=== PATIENT | male | born 2005 | race Caucasian/White ===

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

== ENCOUNTER 2024-04-29 06:50 | Observation (INO) | payer BC ==
[2024-04-28 11:47] VITALS: BMI 36.0
[2024-04-29] MEDS ORDERED: fentaNYL PF 100 MCG/2 ML SYRINGE ONE ×2 (07:49→09:45)
[2024-04-29] MEDS ORDERED: Ondansetron PF 4 MG/2 ML Vial ONE ×2 (07:50→11:24)
[2024-04-29] MEDS ORDERED: PROPOFOL 20 ML ONE (07:50)
[2024-04-29] MEDS ORDERED: Dexamethasone 4 mg/ml Vial ONE (07:50)
[2024-04-29] MEDS ORDERED: CEFAZOLIN 2 GM VIAL ONE ×2 (07:51→13:15)
[2024-04-29] MEDS ORDERED: fentaNYL 50 mcg/mL 1 mL Vial ONE (08:25)
[2024-04-29] MEDS ORDERED: Midazolam HCl 2 mg/2 ml Vial ONE (08:25)
[2024-04-29] MEDS ORDERED: Bupivacaine PF 0.5% 30 ML VIAL ONE (08:25)
[2024-04-29] MEDS ORDERED: Bupivacaine HCl 0.5%/Epinephrine 1:200,000/PF 30 ml Vial ONE (08:33)
[2024-04-29] MEDS ORDERED: Ropivacaine 0.2% 550 ML 550 ML NERVE BLCK SCH (09:30)
[2024-04-29] MEDS ORDERED: traMADol HCl 50 MG TAB PO PRN ×2 (09:30)
[2024-04-29] MEDS ORDERED: Promethazine HCl 25 MG/ML VIAL IM PRN (09:30)
[2024-04-29] MEDS ORDERED: fentaNYL 50 mcg/mL 1 mL Vial SLOW IVP PRN (09:30)
[2024-04-29] MEDS ORDERED: Ondansetron PF 4 MG/2 ML Vial IVP PRN (09:30)
[2024-04-29] MEDS ORDERED: Zolpidem Tartrate 5 MG TAB PO PRN (09:30)
[2024-04-29] MEDS ORDERED: HYDROcodone/Acetaminophen 10/325 mg Tablet PO PRN ×2 (09:30)
[2024-04-29] MEDS ORDERED: Promethazine HCl 25 MG/ML VIAL ONE (12:24)
[2024-04-29] MEDS ORDERED: diphenhydrAMINE 50 MG CAP PO PRN (13:05)
[2024-04-29] MEDS ORDERED: Acetaminophen 500 MG TAB PO PRN (13:05)
[2024-04-29] MEDS ORDERED: Bisacodyl 10 MG SUPP PR PRN (13:05)
[2024-04-29] MEDS ORDERED: HYDROcodone/Acetaminophen 7.5/325 mg Tablet PO PRN ×2 (13:05)
[2024-04-29] MEDS ORDERED: Methocarbamol 500 MG TAB PO PRN (13:05)
[2024-04-29] MEDS ORDERED: Milk Of Magnesia 30 ML UDCUP PO PRN (13:05)
[2024-04-29] MEDS ORDERED: Ketorolac Tromethamine 30 MG (1 mL) VIAL ONE (13:15)
[2024-04-29] MEDS ORDERED: Sodium Chloride 0.9% 100 ML ONE (13:15)
[2024-04-29] MEDS: Ketorolac Tromethamine 30 MG (1 mL) VIAL IVP SCH (13:25)
[2024-04-29] MEDS: Dextrose 5 %-0.45 % NaCl 1,000 ML IV SCH (14:53)
[2024-04-29] MEDS: CEFAZOLIN 2 GM in Sodium Chloride 0.9% 100 ML IVPB SCH (16:50)
[2024-04-29] MEDS: Famotidine 20 MG TAB PO SCH (20:56)
[2024-04-30 07:56] VITALS: TEMP 98.1
[2024-04-30 11:32] VITALS: BP 144/79
[2024-05-01] MEDS ORDERED: FLU (Fluarix Triv) TS24-25(6MOS UP)/PF 45 MCG/0.5 ML Syringe IM ONE (15:30)
== END 2024-04-30 12:25 | disposition home or self-care (01) ==
LOC: SDC 06:50 → SURG B 14:06
PROVIDERS: ADMIT Orthopaedic Surgery; ATTEND Orthopaedic Surgery
PROC: 0MRP47Z Replacement of Left Knee Bursa and Ligament with Autologous Tissue Substitute, Percutaneous Endoscopic Approach (ICD-10-PCS; principal; 2024-04-30)
PROC: 0SBD4ZZ Excision of Left Knee Joint, Percutaneous Endoscopic Approach (ICD-10-PCS; 2024-04-30)
PROC: 3E0T3BZ Introduction of Anesthetic Agent into Peripheral Nerves and Plexi, Percutaneous Approach (ICD-10-PCS; 2024-04-30)
DX: S83.512A Sprain of anterior cruciate ligament of left knee, initial encounter (principal); S83.252A Bucket-handle tear of lateral meniscus, current injury, left knee, initial encounter; Z88.1 Allergy status to other antibiotic agents; Z88.2 Allergy status to sulfonamides; X50.0XXA Overexertion from strenuous movement or load, initial encounter; Y93.66 Activity, soccer
CPT/HCPCS: A4306; C1713; C1889; J0665; J1100; J1885; J2250; J2405; J2550; J2704; J2795; J3010